=== PATIENT | female | born 1990 | race American Indian/Alaskan Native ===

== ENCOUNTER 2016-07-09 19:09 | Emergency (ER) | payer SELFPAY ==
[2016-07-09] MEDS ORDERED: BOOSTRIX IM ONE (20:41)
[2016-07-09] MEDS ORDERED: TORADOL IM ONE (20:41)
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
[2016-07-09] MEDS ORDERED: THERMAZENE 50 GRAM TP ONE (20:42)
[2016-07-09 22:05] VITALS: BP 118/80
== END 2016-07-09 22:13 | disposition home or self-care (01) ==
LOC: ED 19:09
DX: T22.10XA Burn of first degree of shoulder and upper limb, except wrist and hand, unspecified site, initial encounter (principal); M79.1 Myalgia; X12.XXXA Contact with other hot fluids, initial encounter; Y93.9 Activity, unspecified; Y92.9 Unspecified place or not applicable; Y99.9 Unspecified external cause status
CPT/HCPCS: 16000; 90471; 90715; 96372; 99282; J1885

== ENCOUNTER 2020-04-17 11:17 | Emergency (ER) | payer OTHER ==
[2020-04-17] MEDS ORDERED: MORPHINE 4 MG/1 ML INJ ONE (11:45)
[2020-04-17] MEDS ORDERED: ACETAMINOPHEN W/CODEINE 300-30 MG TAB PO ONE (11:49)
[2020-04-17] MEDS ORDERED: SODIUM CHLORIDE 0.9% 1000 ML 1,000 ML IV ONE (11:49)
--- NOTE | 2020-04-17 11:51 | Emergency Department Report ---
ED General Adult HPI - General Chief complaint: Headache Stated complaint: HEADACHE/EAR PAIN Time Seen by Provider: 04/17/20 11:39 Source: patient Mode of arrival: Ambulatory Limitations: No Limitations - History of Present Illness Initial comments: 30-year-old -[place] female patient without past medical history presents with complaints of a headache x3 days. Patient states she is currently 11 weeks and is following with an [facility]. She denies any history of hypertension, swelling in her extremities, vision changes, nausea/vomiting, difficulty with speech/ambulation, confusion, memory loss, or numbness/tingling/weakness in her limbs. Patient rates her current headache as a 7/10 in severity and states it does improve with Tylenol. She denies history of migraines or head trauma and also denies worst headache of her life. She also denies any loss of smell/taste, cough, shortness of breath, recent known sick contacts. - Related Data Home Medications Medication Instructions Recorded Confirmed Last Taken Vits96/Iron Fum/Folic 1 tab PO QDAY 07/13/13 07/13/13 07/13/13 10:00 [ Tablet] Previous Rx's Medication Instructions Recorded Last Taken Type Acetaminophen/Codeine [Tylenol #3] 1 tab PO Q6H PRN #20 tab 07/13/13 Unknown Rx Acetaminophen/Codeine [Tylenol 1 tab PO Q6H PRN #12 tab 07/09/16 Unknown Rx /Codeine # 3 tab] Ibuprofen [Motrin] 600 mg PO Q8H PRN #21 tablet 07/09/16 Unknown Rx Sulfamethoxazole/Trimethoprim 1 each PO BID #20 tablet 07/09/16 Unknown Rx [Bactrim DS TAB] Acetaminophen/Codeine [Tylenol 1 tab PO Q8H PRN #3 tab 04/17/20 Unknown Rx /Codeine # 3 tab] Allergies Allergy/AdvReac Type Severity Reaction Status Date / Time Penicillins Allergy Angioedema Verified 07/09/16 19:54 ED Review of Systems ROS: Stated complaint: HEADACHE/EAR PAIN Other details as noted in HPI Constitutional: denies: chills, diaphoresis, fever, malaise, weakness ENT: denies: throat pain Respiratory: denies: cough, shortness of breath Cardiovascular: denies: chest pain, edema, syncope Gastrointestinal: denies: abdominal pain, nausea, vomiting, diarrhea Genitourinary: denies: urgency, dysuria, frequency, hematuria, abnormal menses Musculoskeletal: denies: back pain Neurological: denies: numbness, paresthesias Hematological/Lymphatic: denies: easy bleeding, easy bruising ED Past Medical Hx - Past Medical History Previous Medical History?: No - Surgical History Past Surgical History?: No - Social History Smoking Status: Never Smoker Substance Use Type: None - Medications Home Medications: Home Medications Medication Instructions Recorded Confirmed Last Taken Type Acetaminophen/Codeine [Tylenol #3] 1 tab PO Q6H PRN #20 tab 07/13/13 Unknown Rx Vits96/Iron Fum/Folic 1 tab PO QDAY 07/13/13 07/13/13 07/13/13 10:00 History [ Tablet] Acetaminophen/Codeine [Tylenol 1 tab PO Q6H PRN #12 tab 07/09/16 Unknown Rx /Codeine # 3 tab] Ibuprofen [Motrin] 600 mg PO Q8H PRN #21 tablet 07/09/16 Unknown Rx Sulfamethoxazole/Trimethoprim 1 each PO BID #20 tablet 07/09/16 Unknown Rx [Bactrim DS TAB] Acetaminophen/Codeine [Tylenol 1 tab PO Q8H PRN #3 tab 04/17/20 Unknown Rx /Codeine # 3 tab] ED Physical Exam - General Limitations: No Limitations General appearance: alert, in no apparent distress - Head Head exam: Present: atraumatic, normocephalic - Eye Eye exam: Present: normal appearance, PERRL, EOMI. Absent: scleral icterus - Neck Neck exam: Present: normal inspection - Respiratory Respiratory exam: Present: normal lung sounds bilaterally. Absent: respiratory distress - Cardiovascular Cardiovascular Exam: Present: regular rate, normal rhythm - Extremities Exam Extremities exam: Absent: other (No edema noted in extremities) - Neurological Exam Neurological exam: Present: alert, oriented X3, CN II-XII intact, normal gait. Absent: motor sensory deficit - Expanded Neurological Exam Expanded Cerebellar function: Finger to Nose: Normal, Romberg: Normal Sensory exam: Upper Extremity Light Touch: Normal, Lower Extremity Light Touch: Normal Motor strength exam: RUE: 5, LUE: 5, RLE: 5, LLE: 5 - Psychiatric Psychiatric exam: Present: normal affect, normal mood - Skin Skin exam: Present: warm, dry, intact, normal color. Absent: rash ED Course Vital Signs 04/17/20 04/17/20 04/17/20 11:40 12:39 12:47 Temperature 99.2 F Pulse Rate 88 Respiratory 20 16 16 Rate Blood Pressure 97/65 Blood Pressure [Right] O2 Sat by Pulse 99 Oximetry 04/17/20 04/17/20 13:39 14:15 Temperature Pulse Rate 86 Respiratory 16 16 Rate Blood Pressure Blood Pressure 112/74 [Right] O2 Sat by Pulse 99 Oximetry ED Medical Decision Making - Medical Decision Making 30-year-old -[place] female patient without past medical history presents with complaints of a headache x3 days. Patient states she is currently 11 weeks and is following with an [facility]. She denies any history of hypertension, swelling in her extremities, vision changes, nausea/vomiting, difficulty with speech/ambulation, confusion, memory loss, or numbness/tingling/weakness in her limbs. Patient rates her current headache as a 7/10 in severity and states it does improve with Tylenol. She denies history of migraines or head trauma and also denies worst headache of her life. She also denies any loss of smell/taste, cough, shortness of breath, recent known sick contacts. Patient neurologically intact on exam. Upon further questioning, patient admits to drinking approximately 40 ounces of water a day. Suspect headache is due to dehydration. Patient given 1 L saline, Tylenol, and Tylenol 3-she states her headache has completely resolved. Her vitals are normal, she is well-appearing, she is stable for discharge home. Recommend increase water intake to minimal 80 to 100 ounces a day and follow-up with PCP and [facility]. Discussed strict return precautions in detail with patient who verbalizes understanding. Critical care attestation.: If time is entered above; I have spent that time in minutes in the direct care of this critically ill patient, excluding procedure time. ED Disposition Clinical Impression: Headache in Qualifiers: Trimester: first trimester Qualified Code(s): O26.891 - Other specified related conditions, first trimester Disposition: DC-01 TO HOME OR SELFCARE Is pt being admited?: No Condition: Stable Instructions: Tension Headache, Adult, Dehydration, Adult Prescriptions: Acetaminophen/Codeine [Tylenol /Codeine # 3 tab] 1 tab PO Q8H PRN #3 tab PRN Reason: headache Referrals: PRIMARY CARE, [Primary Care Provider] - 3-5 Days
[2020-04-17] MEDS ORDERED: ACETAMINOPHEN 500 MG TAB PO ONE (12:07)
[2020-04-17 12:59] LABS: Bilirubin,Urine NEG (Negative); Blood,Urine NEG (Negative); Color,Urine Yellow (Yellow); Mucus,Urine FEW /HPF; Protein,Urine <15 mg/dL mg/dL (Negative); Urobilinogen,Urine < 2.0 mg/dL (<2.0)
[2020-04-17 14:55] VITALS: BP 112/74
== END 2020-04-17 14:50 | disposition home or self-care (01) ==
LOC: ED 11:17
DX: O26.891 Other specified pregnancy related conditions, first trimester (principal); R51.9 Headache, unspecified; Z3A.11 11 weeks gestation of pregnancy; Z79.899 Other long term (current) drug therapy; Z88.0 Allergy status to penicillin
CPT/HCPCS: 81001; 96360; 99283; J7030; J2270